=== PATIENT | female | born 1955 | race Caucasian/White ===

== ENCOUNTER 2024-03-03 21:55 | Emergency (ER) | payer MEDICARE | END 2024-03-03 23:05 | disposition home or self-care (01) | LOC: JP.ED 21:55 | DX: S90.31XA Contusion of right foot, initial encounter (principal); E78.00 Pure hypercholesterolemia, unspecified; Z90.710 Acquired absence of both cervix and uterus; Z79.82 Long term (current) use of aspirin; Z79.899 Other long term (current) drug therapy; Z88.5 Allergy status to narcotic agent; Z88.6 Allergy status to analgesic agent; W22.03XA Walked into furniture, initial encounter | CPT/HCPCS: 73630-RT; 99283 ==